=== PATIENT | male | born 1945 | race Caucasian/White ===

== ENCOUNTER 2019-01-16 08:17 | Day surgery (SDC) | payer MEDICARE, BC ==
[~2019-01-16] VITALS: Ht 172.7 cm; Wt 68.9 kg
[2019-01-16] VITALS (11 sets, daily range): BP systolic 91–134; BP diastolic 45–73
[2019-01-16] MEDS ORDERED: DOCU-148 PO (08:50)
[2019-01-16] MEDS ORDERED: MELA3TAB64 PO (08:50)
[2019-01-16] MEDS ORDERED: DILT180T11 (08:50)
[2019-01-16] MEDS ORDERED: MULT-1085 PO (08:50)
[2019-01-16] MEDS ORDERED: FURO-150 PO (08:50)
[2019-01-16] MEDS ORDERED: LOSA50TA3 PO (08:50)
[2019-01-16] MEDS ORDERED: FERR325T28 PO (08:50)
== END 2019-01-16 10:25 ==
LOC: SSTAY O 08:17
PROVIDERS: ATTEND Radiology Diagnostic Radiology
DX: J90 Pleural effusion, not elsewhere classified (principal); I10 Essential (primary) hypertension; M19.90 Unspecified osteoarthritis, unspecified site; I48.91 Unspecified atrial fibrillation; Z79.899 Other long term (current) drug therapy
CPT/HCPCS: 32555; 71045

== ENCOUNTER 2019-02-12 07:30 | Day surgery (SDC) | payer MEDICARE, BC ==
[~2019-02-12] VITALS: Ht 172.7 cm; Wt 72.5 kg
[2019-02-12] VITALS (9 sets, daily range): BP systolic 98–123; BP diastolic 52–72
[~2019-02-12 07:30] MED LIST: DILT180T11; DOCU-148 PO; FERR325T28 PO; FURO-150 PO; LOSA50TA3 PO; MELA3TAB64 PO; MULT-1085 PO
[2019-02-12] MEDS ORDERED: RIVA15TA PO (08:26)
[2019-02-12] MEDS ORDERED: SENN-162 PO (08:26)
[2019-02-12] MEDS ORDERED: LEVO500T2 PO (08:26)
[2019-02-12] MEDS ORDERED: PRED20TA PO (08:26)
[2019-02-12] MEDS ORDERED: IPRA3AMP9 IH (08:26)
[2019-02-12] MEDS ORDERED: PANT40TA4 PO (08:26)
[2019-02-12] MEDS ORDERED: DILT-36 PO (08:26)
[2019-02-12] MEDS ORDERED: HYDROcodone/acetaminophen 10/325mg tab PO ONE (10:50)
[2019-02-12] MEDS ORDERED: ondansetron/PF 4mg/2ml inj IV ONE (10:50)
--- NOTE | 2019-02-12 11:00 | NUR ---
0976 POST THORACENTESIS- PT C/O LOWER CHEST/RIB PAIN EXTENDING INTO HIS BACK BUT REFUSED PAIN MEDS-1035 PT STATED PAIN WAS INCREASING AND REQUESTED PAIN MEDICATION-ALSO STATING NE FELT MILDLY NAUSEAS. ADMINISTERED NORCO AND ZOFRAN ORDERED-SPOKE Gilberto RUFFIN IN CT REGARDING PT SCHEDULED SCAN AND POSSIBLY TRANSPORTING VIA [facility] TRANSPORT ARRIVED WITH [facility] STATING IT WOULD BE EASIER FOR THEM TO TRANSPORT- THE PT AGREED HE WOULD BE FINE TO TRANSPORT VIA [facility]. PT RETURNED FROM CT STATING PAIN DECREASE TO 12/12-REMAINED IN [facility] UNTIL D/C PER PT REQUEST Addendum: 02/12/19 at 1629 by Jennifer Ledezma RN Amended: Links added.
[2019-02-12] MEDS ORDERED: iohexol 300mg/ml 100ml inj. ONE (11:07)
== END 2019-02-12 12:00 | disposition home or self-care (01) ==
LOC: SSTAY O 07:30
PROVIDERS: ATTEND Radiology Vascular & Interventional Radiology
DX: J90 Pleural effusion, not elsewhere classified (principal); D64.9 Anemia, unspecified; J44.9 Chronic obstructive pulmonary disease, unspecified; I10 Essential (primary) hypertension; K21.9 Gastro-esophageal reflux disease without esophagitis; I48.91 Unspecified atrial fibrillation; Z79.899 Other long term (current) drug therapy; Z88.8 Allergy status to other drugs, medicaments and biological substances
CPT/HCPCS: 32555; 71260; J2405; Q9967

== ENCOUNTER 2019-02-21 08:13 | Day surgery (SDC) | payer MEDICARE, BC ==
[~2019-02-21] VITALS: Ht 172.7 cm; Wt 73.5 kg
[2019-02-21] VITALS (12 sets, daily range): BP systolic 106–131; BP diastolic 51–70
[~2019-02-21 08:13] MED LIST changes: +DILT-36 PO; -DILT180T11; +IPRA3AMP9 IH; +LEVO500T2 PO; +PANT40TA4 PO; +PRED20TA PO; +RIVA15TA PO; +SENN-162 PO
[2019-02-21] MEDS ORDERED: HYDROcodone/acetaminophen 5mg/325mg tablet PO PRN (11:00)
[2019-02-21] MEDS ORDERED: HYDR-4383 PO (12:23)
[2019-02-21] MEDS ORDERED: BISA10SU11 RC (12:23)
[2019-02-21] MEDS ORDERED: MAGN400O6 PO (12:23)
[2019-02-21] MEDS ORDERED: DEXT15DR7 EACHEYE (12:23)
[2019-02-21] MEDS ORDERED: ACET-2119 PO (12:23)
== END 2019-02-21 14:15 ==
LOC: SSTAY O 08:13
PROVIDERS: ATTEND Radiology Vascular & Interventional Radiology
DX: J90 Pleural effusion, not elsewhere classified (principal); I10 Essential (primary) hypertension; I48.91 Unspecified atrial fibrillation; D53.1 Other megaloblastic anemias, not elsewhere classified; K21.0 Gastro-esophageal reflux disease with esophagitis; M19.90 Unspecified osteoarthritis, unspecified site; F17.200 Nicotine dependence, unspecified, uncomplicated; Z88.8 Allergy status to other drugs, medicaments and biological substances; M47.894 Other spondylosis, thoracic region; Z99.81 Dependence on supplemental oxygen; Z79.899 Other long term (current) drug therapy
CPT/HCPCS: 32555; 71045